=== PATIENT | female | born 1945 | race Caucasian/White ===

== ENCOUNTER → 2016-12-11 | Day surgery (SDC) | payer OTHER ==
[~2016-12-11] MED LIST: ASPI81TA2 PO; ATOR40TA59 PO; CHOL200027 PO; GLIM4TAB2 PO; INSU100I18 SQ; IV RINGERS,LACTATED 1000ML 1,000 ML IV SCH; LANS30CA17 PO; LEVO75TA5 PO; NAPR220C4 PO; OMEP20CA5 PO; PIOG1TAB34 PO; PROPOFOL 20 ML IV ONE
[2016-12-11 12:49] VITALS: BP 134/75
--- NOTE | 2016-12-12 10:26 | CONS ---
DATE OF CONSULTATION: 12/11/2016 REFERRING PHYSICIAN: ____ HISTORY OF PRESENT ILLNESS: A 70-year-old female with past medical history significant for diabetes, hyperlipidemia, chronic reflux, hypertension and recurrent dysphagia, Schatzki's ring and pancreatitis, is seen for recurrent dysphagia, ____ in the sub cervical location, dilatation previously did help, although she has dysphagia with solids and liquids. Weight and appetite is stable, there has been no bleeding. She is otherwise without additional complaints. PAST MEDICAL HISTORY: Hyperlipidemia, diabetes, hypothyroidism, gastroesophageal reflux disease, osteoarthrosis, and hypertension. ALLERGIES: None. MEDICATIONS: Aspirin, atorvastatin, vitamin D, glimepiride, insulin, Prevacid, levothyroxine, Naprosyn, metformin, and pioglitazone. FAMILY AND SOCIAL HISTORY: She does not drink or smoke. She is . REVIEW OF SYSTEMS: Per records. PHYSICAL EXAMINATION: GENERAL: Reveals a well-nourished, well-developed female. VITAL SIGNS: She is afebrile, pulse 76, and respirations 18. HEENT: Normocephalic and atraumatic head. Pupils and extraocular muscles not tested. Sclerae anicteric. NECK: Supple. LUNGS: Clear. CARDIOVASCULAR: Reveals an S1, S2 without S3, S4 or appreciable murmur. ABDOMEN: Soft abdomen, normal bowel sounds, without appreciable hepatosplenomegaly. EXTREMITIES: Reveals no cyanosis, clubbing or edema. IMPRESSION: Dysphagia, most likely secondary to presbyesophagus and/or Schatzki's ring, achalasia, malignancy, Marks's esophagus, ____ differential as well. Therefore, I recommended upper endoscopy, possible biopsy and dilatation. Risks and benefits of procedure including risk of perforation have been discussed with the patient who is willing to proceed at this time. Thank you ____ for allowing us to consult and participate in the patient's care. MARKELL SPENCER MD DR: ANTONELLA/brisa JOB#: [id number] / [id number]
== END | disposition home or self-care (01) ==
LOC: ENDOS 10:38
PROVIDERS: ATTEND Internal Medicine Gastroenterology
DX: K22.2 Esophageal obstruction (principal); K29.50 Unspecified chronic gastritis without bleeding; E78.00 Pure hypercholesterolemia, unspecified; I10 Essential (primary) hypertension; M19.90 Unspecified osteoarthritis, unspecified site; E11.9 Type 2 diabetes mellitus without complications; E03.9 Hypothyroidism, unspecified; Z90.710 Acquired absence of both cervix and uterus; Z90.49 Acquired absence of other specified parts of digestive tract
CPT/HCPCS: 43235; 43450; J2704

== ENCOUNTER 2018-02-11 08:08 | Outpatient (CLI) | payer OTHER ==
[2018-02-11 08:26] LABS: ADD MAN DIFF? NO
[2018-02-11 08:35] LABS: BASO % 1 % (0-3); EOS % 1 % (0-3); HEMATOCRIT 41.4 % (36.0-47.0); HEMOGLOBIN 13.8 g/dL (12.0-15.5); LYMPH # 1.4 x10^3/uL (1.0-4.8); LYMPH % 33 % (24-48); MEAN CORPUSCULAR HEMOGLOBIN 28 pg (25-35); MEAN CORPUSCULAR HGB CONC 34 g/dL (31-37); MEAN CORPUSCULAR VOLUME 82 fL (79-100); MONO # 0.3 x10^3/uL (0.0-1.1); MONO % 6 % (0-9); NEUT # 2.5 x10^3uL (1.8-7.7); NEUT % 59 % (31-73); PLATELET COUNT 66 x10^3/uL (140-400); RED BLOOD COUNT 5.04 x10^6/uL (3.50-5.40); RED CELL DISTRIBUTION WIDTH 15.8 % (11.5-14.5); WHITE BLOOD COUNT 4.2 x10^3/uL (4.0-11.0)
[2018-02-11 08:37] LABS: INR 1.2 (0.8-1.1)
[2018-02-11 09:38] LABS: PLT ESTIMATE DECREASED (ADEQUATE)
[2018-02-11] MEDS ORDERED: LIDOCAINE WITH 8.4% SOD BICARB 3 ML DISP.SYRIN. (10:04)
[2018-02-11] MEDS ORDERED: MIDAZOLAM HCL/PF 2 MG/2 ML VIAL. (10:12)
[2018-02-11] MEDS ORDERED: fentaNYL PF VIAL 100 MCG/2 ML VIAL (10:13)
[2018-02-11] MEDS: LIDOCAINE WITH 8.4% SOD BICARB 3 ML DISP.SYRIN. IJ (10:32)
[2018-02-11] MEDS: fentaNYL PF VIAL 100 MCG/2 ML VIAL IV (10:32)
[2018-02-11] MEDS: MIDAZOLAM HCL/PF 2 MG/2 ML VIAL. IV (10:33)
== END 2018-02-11 11:35 | disposition home or self-care (01) ==
LOC: INTRAD 08:08
DX: D70.4 Cyclic neutropenia (principal); D69.6 Thrombocytopenia, unspecified; Z98.42 Cataract extraction status, left eye; Z98.41 Cataract extraction status, right eye; Z96.1 Presence of intraocular lens; E78.00 Pure hypercholesterolemia, unspecified; I10 Essential (primary) hypertension; Z90.49 Acquired absence of other specified parts of digestive tract; Z87.19 Personal history of other diseases of the digestive system; Z90.710 Acquired absence of both cervix and uterus; Z87.442 Personal history of urinary calculi; M19.90 Unspecified osteoarthritis, unspecified site; Z96.653 Presence of artificial knee joint, bilateral; E11.9 Type 2 diabetes mellitus without complications; E03.9 Hypothyroidism, unspecified; Z87.891 Personal history of nicotine dependence; D64.9 Anemia, unspecified; Z98.890 Other specified postprocedural states; Z79.84 Long term (current) use of oral hypoglycemic drugs
CPT/HCPCS: 36415; 38222; 77012; 85025; 85610; 88184; 88185; 88237; 88305; 88311; 88313; 99152; J2250; J3010

== ENCOUNTER → 2018-04-09 | Day surgery (SDC) | payer OTHER ==
[~2018-04-09] MED LIST changes: +ASPI-630 PO; -ASPI81TA2 PO; +IRON1TAB2 PO; -LANS30CA17 PO; +LANS30CA66 PO; +LIDOCAINE 1% PF 2 ML VIAL. ID PRN; +LIDOCAINE 2% PF Vial for OR 5 ML VIAL. ONE; +METF10003 PO; +MIDAZOLAM HCL/PF 2 MG/2 ML VIAL. IV PRN; +OMEP40CA5 PO; +fentaNYL PF VIAL 100 MCG/2 ML VIAL IV PRN
[2018-04-09 10:23] VITALS: BP 136/73
--- NOTE | 2018-04-09 18:37 | CONS ---
DATE OF CONSULTATION: 04/09/2018 REASON FOR CONSULTATION: Dysphagia. REFERRING Niesha Llamas. HISTORY OF PRESENT ILLNESS: A 72-year-old female with past medical history significant for hyperlipidemia, diabetes, hypothyroidism as well as sleep apnea is seen with recurrent dysphagia for solids and liquids. She has dilatation approximately 2 years previously, which has worked and 2 years prior to that. She is here today for interval dilatation. She is on omeprazole 40 mg daily for reflux. Denies any change in weight or appetite. No bleeding. Has no additional complaints. PAST MEDICAL HISTORY: Diabetes, hypothyroidism, gastroesophageal reflux disease, diverticulosis, hypertension. ALLERGIES: None. MEDICATIONS: Include aspirin, atorvastatin, vitamin D, glimepiride, insulin, levothyroxine, Naprosyn, omeprazole, and metformin. FAMILY AND SOCIAL HISTORY: She is retired, nonsmoker, nondrinker, . PAST SURGICAL HISTORY: Significant for joint replacement surgery, cholecystectomy, breast surgery, bilateral knee replacement, eye surgery. REVIEW OF SYSTEMS: Per records. PHYSICAL EXAMINATION: GENERAL: Reveals thin female who is alert, cooperative in no acute distress. VITAL SIGNS: Temperature is 98, pulse of 80, respirations 20. HEENT: Normocephalic, atraumatic head. Pupils and extraocular muscles not tested. Sclerae anicteric. NECK: Supple. LUNGS: Clear. CARDIOVASCULAR: Reveals an S1, S2 without S3, S4 or appreciable murmur. ABDOMEN: Soft abdomen, normal bowel sounds without appreciable hepatosplenomegaly. EXTREMITIES: Reveals no cyanosis, clubbing or edema. IMPRESSION: Dysphagia, most likely secondary to presbyesophagus and/or Schatzki's ring, malignancy, achalasia, eosinophilic esophagitis are possible as well. Therefore, I recommend possible biopsy and/or dilatation. Risks and benefits have been discussed with the patient previously, is willing to proceed. MARKELL SPENCER MD DR: ANTONELLA/brisa JOB#: [id number] / [id number] ecc Records, Medical
== END | disposition home or self-care (01) ==
LOC: ENDOS 08:32
PROVIDERS: ATTEND Internal Medicine Gastroenterology
DX: K22.2 Esophageal obstruction (principal); K29.50 Unspecified chronic gastritis without bleeding; E78.00 Pure hypercholesterolemia, unspecified; I10 Essential (primary) hypertension; E11.9 Type 2 diabetes mellitus without complications; E03.9 Hypothyroidism, unspecified; Z79.899 Other long term (current) drug therapy; K21.9 Gastro-esophageal reflux disease without esophagitis; Z79.82 Long term (current) use of aspirin; Z79.4 Long term (current) use of insulin; Z79.84 Long term (current) use of oral hypoglycemic drugs; Z90.49 Acquired absence of other specified parts of digestive tract; Z96.653 Presence of artificial knee joint, bilateral; Z98.42 Cataract extraction status, left eye; Z98.41 Cataract extraction status, right eye; Z96.1 Presence of intraocular lens; Z87.19 Personal history of other diseases of the digestive system; Z90.710 Acquired absence of both cervix and uterus; Z98.890 Other specified postprocedural states; M19.90 Unspecified osteoarthritis, unspecified site; D64.9 Anemia, unspecified; K74.60 Unspecified cirrhosis of liver; Z87.891 Personal history of nicotine dependence
CPT/HCPCS: 43235; 43450; J2001; J2704

== ENCOUNTER → 2018-08-02 | Outpatient (CLI) | payer OTHER ==
[2018-04-09 10:23] VITALS: BP 136/73
[~2018-08-02] MED LIST changes: -IV RINGERS,LACTATED 1000ML 1,000 ML IV SCH; +LIDOCAINE 1% Multi-Dose 50 ML VIAL. INJ ONE; -LIDOCAINE 1% PF 2 ML VIAL. ID PRN; -LIDOCAINE 2% PF Vial for OR 5 ML VIAL. ONE; +LIDOCAINE 2%/EPI 1:100,000 20 ML VIAL. IJ ONE; -METF10003 PO; +METF10007 PO; -MIDAZOLAM HCL/PF 2 MG/2 ML VIAL. IV PRN; -PIOG1TAB34 PO; +PIOG1TAB6 PO; -PROPOFOL 20 ML IV ONE; -fentaNYL PF VIAL 100 MCG/2 ML VIAL IV PRN
--- NOTE | 2018-08-04 12:09 | PATHOLOGY ---
[facility] Accession Number: [id number] . 01 Material submitted: . RIGHT BREAST MASS . 01 Clinical history: . Right breast mass 5 mm . 02 Diagnosis: Breast tissue, right breast mass needle biopsies: - INVASIVE DUCTAL CARCINOMA, GRADE 2. SEE COMMENT. . (JPM:isaac; 08/03/2018) QMS/08/04/2018 . 02 Comment: Sections of the right breast mass needle biopsy reveal an invasive mammary carcinoma. The tumor shows little tubule formation, and is largely present in small solid nests and cords. The tumor cells show mild to focal moderate nuclear pleomorphism. The tumor shows modest mitotic activity. There is a rare tumor-associated microcalcification. There is no lymphovascular tumor invasion. The invasive carcinoma measures up to 6 mm in greatest dimension on the glass slide. The case is also examined by Dr. Gross, who concurs with the diagnosis. Breast prognostic studies will be obtained, the results of which will be reported separately. (JPM:isaac; 08/03/2018) . 02 Electronically signed: . Bradley Billy MD, Pathologist NPI- [id number] . 01 Gross description: . Received in formalin labeled "Twila Syed, right breast," are multiple needle cores of yellow-meade fibrofatty tissue measuring 2.2 x 1.2 x 0.3 cm in aggregate dimensions. The tissue submitted in its entirety in cassette A1 through A3. The cold ischemic time is 3 minutes. The total formalin fixation time is 13 hours and 7 minutes. (TSD; 08/02/2018) TOB/TOB . 02 Pathologist provided ICD-10: C50.911 . 02 CPT . 813789 Specimen Comment: A courtesy copy of this report has been sent to Specimen Comment: [phone], , . Specimen Comment: Report sent to , DR RAND / DR PLATT Specimen Comment: A duplicate report has been generated due to demographic updates. Performed at: 01 [facility] [address], [place] [id number] MD Adal Kelley MD Phone: [phone] Performed at: 02 [facility] [address] [place], [place] [id number] MD Bradley Billy MD Phone: [phone]
--- NOTE | 2018-08-06 09:42 | RAD ---
Ultrasound-guided vacuum-assisted right breast biopsy, 08/02/2018: History: Suspicious breast nodule Previous studies demonstrated a a faint, suspicious hypoechoic area at the 12:30 location in the right breast approximately 5 cm from the nipple. Under local anesthesia, aseptic conditions and sonographic guidance the [employer] biopsy instrument was passed into this region via a medial approach. Multiple 12-gauge vacuum-assisted core samples were obtained. A biopsy marker was then deposited at the biopsy site. The biopsy instrument was removed and hemostasis obtained. Two-view postprocedural digital mammograms were then obtained to document position of the biopsy marker. The marker lies directly adjacent to the suspicious mammographic abnormality. The patient tolerated the procedure well and left the department in good condition. The subsequent pathology report indicated the presence of invasive ductal carcinoma. This is considered to be concordant finding. Note: The findings were called to personnel in Dr. Candelaria's office at 9:37 AM on 08/06/2018.
== END | disposition home or self-care (01) ==
LOC: US 07:37
PROVIDERS: ATTEND Surgery
DX: C50.211 Malignant neoplasm of upper-inner quadrant of right female breast (principal); E11.9 Type 2 diabetes mellitus without complications; E03.9 Hypothyroidism, unspecified; E78.5 Hyperlipidemia, unspecified; J44.9 Chronic obstructive pulmonary disease, unspecified; K21.9 Gastro-esophageal reflux disease without esophagitis; Z79.82 Long term (current) use of aspirin; Z79.899 Other long term (current) drug therapy; Z90.710 Acquired absence of both cervix and uterus; Z90.49 Acquired absence of other specified parts of digestive tract; Z96.653 Presence of artificial knee joint, bilateral; Z98.42 Cataract extraction status, left eye; Z98.41 Cataract extraction status, right eye; Z96.1 Presence of intraocular lens; Z98.890 Other specified postprocedural states; Z88.8 Allergy status to other drugs, medicaments and biological substances; Z79.84 Long term (current) use of oral hypoglycemic drugs
CPT/HCPCS: 19083; 77065; 88305; 88361; C1713; 19081; 76942

== ENCOUNTER → 2018-09-07 | Outpatient (CLI) | payer OTHER ==
[2018-08-19 11:00] VITALS: BP 110/55
[~2018-09-07] MED LIST changes: +CYCL5TAB PO; +INSU200I4 SQ; -LIDOCAINE 1% Multi-Dose 50 ML VIAL. INJ ONE; -LIDOCAINE 2%/EPI 1:100,000 20 ML VIAL. IJ ONE
--- NOTE | 2018-09-07 12:47 | KCIC ---
EXAM: Dual energy x-ray absorptiometry (DEXA). HISTORY: Postmenopausal female presents for osteoporosis screening. COMPARISON: None. TECHNIQUE: Dual energy x-ray absorptiometry of the left hip was performed. Calculation of bone mineral density based on standard deviations above or below the expected young adult normal value (T-score) was completed. FINDINGS: The average bone mineral density in the left hip is 0.821 g/cmxcm, corresponding with a T-score of -1.0. IMPRESSION: Borderline osteopenia measured at the left hip. Note: Definitions established by the World Health Organization: 1. Normal: T-score is -1.0 or above. 2. Osteopenia: T-score is between -1.0 and -2.5 . 3. Osteoporosis: T-score is -2.5 or below. Electronically signed by: Brenda Martinez MD (09/07/2018 12:43 PM) [facility]
== END | disposition home or self-care (01) ==
LOC: KCIC DEXA 12:04
PROVIDERS: ATTEND Internal Medicine Hematology & Oncology
DX: M85.852 Other specified disorders of bone density and structure, left thigh (principal); Z78.0 Asymptomatic menopausal state
CPT/HCPCS: 77080

== ENCOUNTER → 2018-12-20 | Outpatient (CLI) | payer OTHER ==
[2018-08-19 11:00] VITALS: BP 110/55
--- NOTE | 2018-12-20 14:24 | RAD ---
Nuclear medicine whole body bone scan History: rt breast ca. rt mastectomy 2017. Comparison: No relevant comparison exams. Technique: Examination performed after intravenous administration of 25 mCi Technetium 99m MDP. Images of the whole body were obtained in the anterior and posterior projections. Right and left lateral static images of the calvarium acquired. Findings: Increased tracer uptake in the lumbar spine likely localizing to the L3 vertebral body, midline and right of midline, in the left L4 vertebral body. Tracer uptake in the spine is otherwise relatively homogeneous. Tracer uptake in the sacroiliac joints appear symmetric. Tracer uptake of the shoulders is symmetric and likely degenerative. There are bilateral knee arthroplasties. Periprosthesis tracer uptake is relatively symmetric and therefore probably normal. Tracer uptake in ribs is symmetric. Tracer distribution in the soft tissues appears normal. IMPRESSION: Increased tracer uptake of the L3 and L4 vertebral bodies. Cannot exclude metastatic disease. Recommend correlation with cross-sectional imaging. Electronically signed by: Andera Caruso MD (12/20/2018 2:22 PM) [id number]
== END | disposition home or self-care (01) ==
LOC: NM 08:31
PROVIDERS: ATTEND Internal Medicine Hematology & Oncology
DX: M89.8X9 Other specified disorders of bone, unspecified site (principal); Z17.0 Estrogen receptor positive status [ER+]; Z85.3 Personal history of malignant neoplasm of breast; Z96.653 Presence of artificial knee joint, bilateral
CPT/HCPCS: 78306; A9503

== ENCOUNTER → 2019-01-27 | Outpatient (CLI) | payer OTHER ==
[2018-08-19 11:00] VITALS: BP 110/55
--- NOTE | 2019-01-27 11:22 | RAD ---
FDG tumor localization scan, PET/CT, 01/27/2019: History: Restaging breast cancer Following IV injection of 15.5 mCi of 18 F-FDG, imaging was performed from the skull base to the proximal thighs. The noncontrast CT component was performed for attenuation correction and anatomic localization purposes rather than for primary diagnosis. The patient's blood glucose level at the time of injection was 145 MG/DL. There is increased FDG uptake at the right breast surrounding a small elliptical fluid collection, presumably a seroma/old hematoma. No hypermetabolic axillary, internal mammary or mediastinal adenopathy is evident. The pulmonary FDG uptake is unremarkable. Physiologic activity is evident in the neck. There is mild asymmetrically increased activity in the left thyroid lobe. No discrete mass is seen. The neck activity is otherwise unremarkable. Normal GI tract and urinary tract activity is evident in the abdomen and pelvis. No hypermetabolic abdominal or pelvic lesion is seen. Incidental CT findings include the presence of mild coronary calcifications. The gallbladder is surgically absent. A few sigmoid diverticula are present. There are scattered degenerative changes in the spine. IMPRESSION: 1. Postsurgical change at the right mastectomy site with a small presumed seroma. Infection cannot be excluded. 2. Mildly asymmetric thyroid FDG uptake. Correlation with sonographic findings is suggested. 3. No FDG/PET evidence of metastatic disease.
== END | disposition home or self-care (01) ==
LOC: PETSC 08:43
PROVIDERS: ATTEND Internal Medicine Hematology & Oncology
DX: C50.911 Malignant neoplasm of unspecified site of right female breast (principal); M89.8X9 Other specified disorders of bone, unspecified site; I25.10 Atherosclerotic heart disease of native coronary artery without angina pectoris; Z17.0 Estrogen receptor positive status [ER+]; Z95.3 Presence of xenogenic heart valve; Z90.49 Acquired absence of other specified parts of digestive tract
CPT/HCPCS: 78815; A9552

== ENCOUNTER → 2019-02-10 | Outpatient (CLI) | payer OTHER ==
[2018-08-19 11:00] VITALS: BP 110/55
--- NOTE | 2019-02-10 16:20 | RAD ---
Thyroid ultrasound, 02/10/2019: HISTORY: Asymmetric FDG uptake on pet scan This patient's thyroid gland is small and difficult to delineate. The right lobe measures 2.9 x 0.9 x 1.0 cm while the left lobe measures 2.0 x 0.9 x 0.7 cm. Both lobes are somewhat heterogeneous. There is a 5 mm small rounded hypoechoic nodule in the lower pole right lobe of the gland. There is a possible 9 mm relatively isoechoic nodule in the upper pole of the right lobe of the gland. No left thyroid nodule is seen. No thyroid calcifications are evident. IMPRESSION: 1. Small heterogeneous thyroid gland. 2. There appear to be 2 small subcentimeter nodules in the right thyroid lobe without suspicious features. 3. The asymmetric thyroid FDG uptake on the recent PET/CT exam is considered to be of no clinical significance, considering the lack of a definable left thyroid nodule. Electronically signed by: Emerson Ross MD (02/10/2019 4:17 PM) [facility]
== END | disposition home or self-care (01) ==
LOC: US 14:23
PROVIDERS: ATTEND Internal Medicine Hematology & Oncology
DX: E04.2 Nontoxic multinodular goiter (principal)
CPT/HCPCS: 76536

== ENCOUNTER → 2019-04-21 | Day surgery (SDC) | payer OTHER ==
[~2019-04-21] MED LIST changes: +EXEM25TA2 PO; +HYDROmorphone 2 MG/ML VIAL IV PRN; +IV RINGERS,LACTATED 1000ML 1,000 ML IV SCH; +LIDOCAINE 1% PF 2 ML VIAL. ID PRN; +LIDOCAINE 2% PF 5 ML VIAL. ONE; +MORPHINE SULFATE 2 MG/ML VIAL. IV PRN; +ONDANSETRON PF 4 MG/2 ML VIAL. IV PRN; -PIOG1TAB6 PO; +PIOG1TAB8 PO; +PROCHLORPERAZINE 10 MG/2 ML VIAL. IV PRN; +PROPOFOL 20 ML IV ONE; +fentaNYL PF VIAL 100 MCG/2 ML VIAL IV PRN
[2019-04-21 13:00] VITALS: BP 160/80
--- NOTE | 2019-04-21 20:32 | CONS ---
DATE OF CONSULTATION: 04/21/2019 REFERRING PHYSICIAN: PAM Ivy REASON FOR CONSULTATION: Dysphagia. HISTORY OF PRESENT ILLNESS: A 73-year-old female whose past medical history is significant for diabetes, hypothyroidism, gastroesophageal reflux disease, diverticulosis, hypertension, seen for recurrent dysphagia. Previous dilatation done 1 year previously has worked until now. She is now here today for repeat dilatation. PAST MEDICAL HISTORY: Diabetes, hypothyroidism, GERD, diverticulosis, hypertension. ALLERGIES: None. MEDICATIONS: Vitamin D, cyclobenzaprine, glimepiride, insulin, iron, levothyroxine, metformin, omeprazole. FAMILY AND SOCIAL HISTORY: Retired, nonsmoker, nondrinker. She is . PAST SURGICAL HISTORY: Significant for joint replacement, cholecystectomy, breast surgery, bilateral knee replacement, eye surgery. REVIEW OF SYSTEMS: Per records. PHYSICAL EXAMINATION: GENERAL: Reveals a well-nourished, well-developed female, who is alert, cooperative, in no acute distress. VITAL SIGNS: Temp is 97.9, pulse 71, respirations 20. HEENT: Normocephalic, atraumatic head. Pupils and extraocular muscles are not tested. Sclerae anicteric. NECK: Supple. LUNGS: Clear. CARDIOVASCULAR: Reveals an S1, S2 without S3, S4 or appreciable murmur. ABDOMEN: Soft abdomen, normal bowel sounds, without appreciable hepatosplenomegaly. EXTREMITIES: Reveals no cyanosis, clubbing or edema. IMPRESSION: Dysphagia, most likely secondary to recurrent Schatzki ring and eosinophilic esophagitis, Marks's, malignancy, achalasia possible as well. Therefore, we are going to get upper endoscopy, possible biopsy and dilatation. Risks and benefits have been discussed with the patient, who understands of perforation and is willing to proceed. MARKELL SPENCER MD DR: ANTONELLA/brisa JOB#: [id number] / [id number]
== END ==
LOC: SURG 10:41
PROVIDERS: ATTEND Internal Medicine Gastroenterology
DX: K22.2 Esophageal obstruction (principal); E11.9 Type 2 diabetes mellitus without complications; E03.9 Hypothyroidism, unspecified; K21.9 Gastro-esophageal reflux disease without esophagitis; I10 Essential (primary) hypertension; Z96.653 Presence of artificial knee joint, bilateral; Z79.84 Long term (current) use of oral hypoglycemic drugs; Z98.890 Other specified postprocedural states
CPT/HCPCS: 43235; 43450; J2001; J2704

== ENCOUNTER → 2020-03-08 | Outpatient (CLI) | payer MEDICARE, OTHER ==
[2019-08-06 19:00] VITALS: BP 120/67
[~2020-03-08] MED LIST changes: +ANAS1TAB47 PO; +DOCU-109 PO; -GLIM4TAB2 PO; +GLIM4TAB8 PO; +HYDR-2761 PO; -HYDROmorphone 2 MG/ML VIAL IV PRN; +INSU100I13 SQ; -IV RINGERS,LACTATED 1000ML 1,000 ML IV SCH; -LIDOCAINE 1% PF 2 ML VIAL. ID PRN; -LIDOCAINE 2% PF 5 ML VIAL. ONE; +LIPITOR80 MG PO; -MORPHINE SULFATE 2 MG/ML VIAL. IV PRN; +OMEP40CA45 PO; -OMEP40CA5 PO; -ONDANSETRON PF 4 MG/2 ML VIAL. IV PRN; +POLY17PO29 PO; -PROCHLORPERAZINE 10 MG/2 ML VIAL. IV PRN; -PROPOFOL 20 ML IV ONE; -fentaNYL PF VIAL 100 MCG/2 ML VIAL IV PRN
== END | disposition home or self-care (01) ==
LOC: LAB 13:41
PROVIDERS: ATTEND Internal Medicine Gastroenterology
DX: Z11.59 Encounter for screening for other viral diseases (principal)
CPT/HCPCS: U0003-CS

== ENCOUNTER → 2020-03-14 | Day surgery (SDC) | payer MEDICARE, OTHER ==
[~2020-03-14] MED LIST changes: -DOCU-109 PO; -HYDR-2761 PO; -INSU100I13 SQ; +IV RINGERS,LACTATED 1000ML 1,000 ML IV ONE; +LIDOCAINE 2% PF 5 ML VIAL. ONE; -POLY17PO29 PO; +PROPOFOL 10 MG/ML (20ML) VIAL. IV ONE
[2020-03-14 08:20] VITALS: BP 141/87
== END | disposition home or self-care (01) ==
LOC: ENDOS 06:48
PROVIDERS: ATTEND Internal Medicine Gastroenterology
DX: R13.10 Dysphagia, unspecified (principal); I10 Essential (primary) hypertension; E11.9 Type 2 diabetes mellitus without complications; E78.00 Pure hypercholesterolemia, unspecified; G47.30 Sleep apnea, unspecified; K21.9 Gastro-esophageal reflux disease without esophagitis; Z98.890 Other specified postprocedural states; Z79.899 Other long term (current) drug therapy
CPT/HCPCS: 43450; J2704

== ENCOUNTER 2020-03-15 15:19 | Inpatient (IN) | payer MEDICARE, OTHER ==
[~2020-03-15] VITALS: Ht 157.5 cm; Wt 71.5 kg
[~2020-03-15 15:19] MED LIST changes: -ANAS1TAB47 PO; -IV RINGERS,LACTATED 1000ML 1,000 ML IV ONE; -LIDOCAINE 2% PF 5 ML VIAL. ONE; -LIPITOR80 MG PO; -PROPOFOL 10 MG/ML (20ML) VIAL. IV ONE
[2020-03-15 15:24] VITALS: BP 115/66
[2020-03-15] MEDS ORDERED: ANAS1TAB47 PO (16:03)
[2020-03-15] MEDS ORDERED: LIPITOR80 MG PO (16:03)
[2020-03-15] MEDS ORDERED: ONDANSETRON PF 4 MG/2 ML VIAL. IVP PRN (16:30)
[2020-03-15] MEDS ORDERED: DEXTROSE 50% 25 GM / 50ML DISP.SYRIN. IV PRN (16:30)
[2020-03-15 19:00] VITALS: BP 102/54
[2020-03-15] MEDS: MORPHINE SULFATE 4 MG/ML VIAL. IV PRN (21:01)
[2020-03-15 23:00] VITALS: BP 116/59
[2020-03-16] MEDS: MORPHINE SULFATE 4 MG/ML VIAL. IV PRN ×2 (02:32→08:22)
[2020-03-16 03:00] VITALS: BP 108/51
[2020-03-16 07:00] VITALS: BP 138/70
--- NOTE | 2020-03-16 09:11 | NUR ---
SW following. Discussed with RN, pt from home, ada diet, 2L oxygen - SW to determine if pt uses o2 at home. IR consult. SW will continue to follow.
[2020-03-16 11:00] VITALS: BP 104/62
[2020-03-16] MEDS ORDERED: GADOTERATE 7.5 MMOL/15ML VIAL. IVP ONE (13:30)
--- NOTE | 2020-03-16 14:13 | PN ---
DATE: SUBJECTIVE: The patient is resting, slightly propped up in bed, in no apparent distress. On questioning her, she continued to complain of back pain, also now states that she is unable to urinate. PHYSICAL EXAMINATION: GENERAL: When I examined her, she looked pale, no jaundice, cyanosis or thyromegaly. No jugular venous distention. No limb edema. VITAL SIGNS: Her heart rate was 93, blood pressure 104/62, temperature 98.6, respiratory rate was 18 and oxygen saturation was 95% on room air. HEAD, EYES, EARS, NOSE AND THROAT: Normocephalic, atraumatic. NECK: Supple. HEART: Showed normal first and second heart sounds. No gallop or murmur. CHEST: Clear to auscultation. No crepitation or rhonchi. ABDOMEN: Distended, soft with tenderness, mostly in the suprapubic area. There is no guarding or rigidity. No organomegaly. All hernial orifice intact. Bowel sounds normal. NEUROLOGIC: She is awake, alert, responding appropriately. All cranial nerves intact. She moves extremities without difficulty. LABORATORY DATA: She has no lab work today. However, her blood sugar remained stable, within acceptable range. We have continued her medication including Arimidex 1 mg once a day, atorvastatin calcium 80 mg once a day, omeprazole 40 mg once a day. She is also on metformin 1000 mg twice a day, glimepiride 4 mg twice a day and levothyroxine sodium 88 mcg once a day. She has had an MRI arranged and we have already consulted the interventional radiologist to see whether she is a candidate for vertebroplasty. She does have multiple other medical problems that include hypertension, hyperlipidemia and type 2 diabetes mellitus. We will also arrange for her to scan her bladder as she is probably retaining urine. BAILEY MCCORMICK MD DR: KEYANA/brisa JOB#: [id number] / [id number]
--- NOTE | 2020-03-16 14:29 | HP ---
ADMIT DATE: HISTORY OF PRESENT ILLNESS: The patient is a 74-year-old female patient, who apparently presented to the Emergency Room of [facility] with mechanical ground level fall, landing on her bottom approximately an hour and half prior to arrival. The patient has a history of vertebral fracture with kyphoplasty in the past. She has pain in her lower thoracic and lumbar area. She denied any neurological deficit. No bladder or bowel incontinence. Denied any other complaint. She was investigated. In particular, there was no loss of consciousness. She did not hit her head. Denied any headache. She was evaluated in the Emergency Room and has had a CT scan of thoracic and lumbar spine, which showed that the patient has approximately 50% height loss of L1 vertebral body given the cortical offset anteriorly, suspicious for acute compression fracture with mild retropulsion of the posterior element that results in mild central canal stenosis. She has chronic fracture of T11 and L3 vertebral bodies posterior to augmentation change, has diffusely decreased bone mineral density and multilevel degenerative changes and therefore, the patient was transferred to [facility] to arrange for an MRI and to consult the interventional radiologist to see whether she qualifies for kyphoplasty. PAST MEDICAL HISTORY: Significant for diabetes, hypertension, gastroesophageal reflux disease, diverticulosis, hypertension as well as recurrent dysphagia, for which she underwent previous dilatation. PAST SURGICAL HISTORY: Significant for joint replacement, cholecystectomy, breast surgery, bilateral knee replacement, eye surgery, EGDs and colonoscopy as well as esophageal stricture dilatation. ALLERGIES: She has no known drug allergies. FAMILY HISTORY: Noncontributory. SOCIAL HISTORY: She is , retired, nonsmoker, nondrinker. MEDICATIONS: She is currently on following medications: She is on exemestane 25 mg once a day, orphenadrine citrate 100 mg twice a day, ferrous sulfate 325 mg once a day, aspirin 81 mg once a day, naproxen 375 mg once a day, omeprazole 40 mg once a day, metformin 500 mg twice a day. She is on Tresiba 55 units subcutaneously once a day at bedtime, glimepiride 5 mg twice a day, levothyroxine sodium 25 mcg once a day, ergocalciferol vitamin D3 of 2000 units once a day. REVIEW OF SYSTEMS: As per history of present illness. PHYSICAL EXAMINATION: GENERAL: On arrival to the Emergency Room, the patient looked pale, but no jaundice, cyanosis or thyromegaly. No jugular venous distention or limb edema. VITAL SIGNS: Her heart rate was 89, blood pressure was 148/79, temperature was 98, respiratory rate was 26 and oxygen saturation was 96% on room air. HEAD, EYES, EARS, NOSE AND THROAT: Showed normocephalic, atraumatic. NECK: Supple. HEART: Showed normal first and second heart sounds. No gallop, rub or murmur. CHEST: Clear to auscultation. No crepitation or rhonchi. ABDOMEN: Distended, soft, nontender. NEUROLOGIC: She was awake, alert, responding appropriately. All cranial nerves intact. EXTREMITIES: She moves extremities without difficulty. PSYCHIATRIC: Her affect, judgment and mood were normal. LABORATORY DATA: She has had lab work done, which showed that her white cell count was 7000, hemoglobin 14, hematocrit 44, MCV 87 and platelet count of 77,000. Her prothrombin time, INR and aPTT were normal. Her chemistry showed a serum sodium 138, potassium 4.3, chloride 101, bicarbonate 23, anion gap of 14, BUN 9, creatinine 1, estimated GFR was 54 mL per minute. Her glucose was 113, calcium was 9.8. Total bilirubin, AST, ALT, alkaline phosphatase were normal. Total protein was 7.3, albumin was 3.6. Her COVID-19 by PCR was negative. She did have a CT scan of the thoracic spine as well as a CT scan of the lumbar spine, which showed that there is approximately 50% height loss of the L1 vertebral body given the cortical offset anteriorly, suspicious for acute compression fracture with mild retropulsion of the posterior element that results in mild central canal stenosis. She has chronic fracture of T11 and L3 vertebral bodies, posterior to augmentation changes. She has also diffusely decreased bone mineral density and multilevel degenerative changes. The patient was transferred to [facility]. We did order an MRI and consulted Dr. Garcia to see whether she qualifies for kyphoplasty. BAILEY MCCORMICK MD DR: KEYANA/brisa JOB#: [id number] / [id number]
[2020-03-16 15:00] VITALS: BP 120/68
--- NOTE | 2020-03-16 15:45 | RAD ---
LUMBAR SPINE WO/W CONTRAST History: Reason: Comp fx 14mL DOTAREM / Spl. Instructions: / History: Technique: Multiplanar, multi sequential MR imaging was performed of the lumbar spine without and with intravenous contrast. Comparison: July 30, 2019 Findings: Transitional lumbosacral anatomy with lumbarization of S1. Vertebral body numbering in keeping with prior reporting. L5-S1 is identified on axial T2 series 7 image 19. Acute L1 superior endplate compression fracture with mild less than 25 percent height loss. No retropulsion. Severe chronic L3 compression fracture with interval vertebroplasty. Increased height loss centrally compared to 2019. Increased retropulsion contributing to moderate to severe canal narrowing. Chronic T11 compression fracture with vertebroplasty material. Conus terminates at the normal location. No evidence of nerve root clumping. No pathologic enhancement. L1-L2: No canal or neuroforaminal narrowing. L2-L3: Disc bulge. Retropulsion from severe compression fracture. Moderate to severe canal narrowing. Moderate right and mild left neuroforaminal narrowing. Mild facet arthropathy. L3-L4: Disc bulge. Moderate facet arthropathy. Mild canal narrowing due to retropulsion from compression fracture. Moderate right and mild left neuroforaminal narrowing. L4-L5: Broad-based disc bulge. Advanced right and moderate left facet arthropathy. Right greater left subarticular recess narrowing. Mild canal narrowing. No neuroforaminal narrowing. L5-S1: Disc bulge. Advanced facet arthropathy. No canal narrowing. No neuroforaminal narrowing. Impression: 1. Acute L1 mild compression fracture. 2. Chronic L3 compression fracture with increased central height loss and retropulsion compared to 2019 MRI contributing to moderate to severe canal narrowing. 3. Multilevel lumbar spondylosis. Electronically signed by: Herbie Vences DO (03/16/2020 3:42 PM) [id number]
--- NOTE | 2020-03-16 16:19 | NUR ---
Bladder scanned, 425cc noted.
[2020-03-16] MEDS: LEVOTHYROXINE 88 MCG TABLET PO SCH (16:39)
[2020-03-16] MEDS: PANTOPRAZOLE 40 MG TABLET.DR. PO SCH (16:39)
[2020-03-16] MEDS: ANASTROZOLE 1 MG TABLET PO SCH (16:40)
[2020-03-16] MEDS: metFORMIN 500 MG TABLET PO SCH (17:26)
[2020-03-16 18:05] LABS: PROTHROMBIN TIME PATIENT 14.7 SEC (11.7-14.0)
[2020-03-16 19:00] VITALS: BP 91/18
[2020-03-16] MEDS: ATORVASTATIN CALCIUM 40 MG TABLET. PO SCH (20:13)
[2020-03-16] MEDS: GLIMEPIRIDE 2 MG TABLET. PO SCH (20:13)
[2020-03-16 23:00] VITALS: BP 118/65
[2020-03-17 03:00] VITALS: BP 135/68
[2020-03-17] MEDS: MORPHINE SULFATE 4 MG/ML VIAL. IV PRN ×2 (03:21→22:16)
[2020-03-17] MEDS: PANTOPRAZOLE 40 MG TABLET.DR. PO SCH (06:11)
[2020-03-17] MEDS: LEVOTHYROXINE 88 MCG TABLET PO SCH (06:11)
[2020-03-17 07:00] VITALS: BP 127/59
[2020-03-17 08:19] LABS: HEMOGLOBIN 13.3 g/dL (12.0-15.5); RED BLOOD COUNT 4.66 x10^6/uL (3.50-5.40); RED CELL DISTRIBUTION WIDTH 15.2 % (11.5-14.5); WHITE BLOOD COUNT 5.1 x10^3/uL (4.0-11.0)
[2020-03-17 09:06] LABS: ALBUMIN 3.1 g/dL (3.4-5.0); ALBUMIN/GLOBULIN RATIO 0.8 (1.0-1.7); CALCIUM 9.1 mg/dL (8.5-10.1); CREATININE 0.9 mg/dL (0.6-1.0); GFR 60.9; POTASSIUM 4.6 mmol/L (3.5-5.1); TOTAL BILIRUBIN 1.5 mg/dL (0.2-1.0); TOTAL PROTEIN 7.1 g/dL (6.4-8.2)
[2020-03-17] MEDS: ANASTROZOLE 1 MG TABLET PO SCH (10:00)
[2020-03-17] MEDS: GLIMEPIRIDE 2 MG TABLET. PO SCH ×2 (10:01→22:14)
[2020-03-17] MEDS: metFORMIN 500 MG TABLET PO SCH ×2 (10:01→17:16)
[2020-03-17] MEDS: POLYETHYLENE GLYCOL 3350 17 GM PACKET. PO SCH (10:30)
--- NOTE | 2020-03-17 10:57 | PN ---
DATE: 03/17/2020 SUBJECTIVE: The patient is resting, slightly propped up in bed, in no apparent distress. She is awake, alert. On questioning her, she did complain of constipation. She did complain yesterday of difficulty urinating and has had an indwelling Blela catheter. She has had an MRI of her lumbar spine, which showed that she has acute L1 mild compression fracture. She has chronic L3 compression fracture with increased central height loss and retropulsion compared to 2019 MRI contributing to [id number] canal narrowing, multilevel lumbar spondylosis. Yesterday, she was having difficulty urinating. PHYSICAL EXAMINATION: GENERAL: When I examined her, she was resting, slightly propped up in bed, in no apparent respiratory distress. She was pale. No jaundice, cyanosis, or thyromegaly. No jugular venous distention. No limb edema. VITAL SIGNS: Her heart rate was 101, blood pressure was 127/60, temperature was 97.8, respiratory rate was 16, and oxygen saturation was 94%. HEAD, EYES, EARS, NOSE, AND THROAT: Normocephalic, atraumatic. NECK: Supple. HEART: Showed normal first and second heart sounds. No gallop, rub, or murmur. CHEST: Clear to auscultation. No crepitation or rhonchi. ABDOMEN: Markedly distended, soft, nontender. NEUROLOGIC: She is awake, alert, responding appropriately. All cranial nerves intact. She moves extremities without difficulty. Her intake and output were incompletely recorded. LABORATORY DATA: As of this morning, her white cell count was 5100, hemoglobin 13, hematocrit 40, MCV 86 and platelet count of 66,000. Her chemistry showed a serum sodium of 137, potassium 4.6, chloride 100, bicarbonate 29, anion gap of 8, BUN 10, creatinine was 0.9, estimated GFR was 60 mL per minute. Her glucose was 128, calcium was 9.1. Total bilirubin 1.5. AST, ALT, alkaline phosphatase were normal. Total protein 7.1, albumin was 3.1. Her prothrombin time and INR were 14.7 and 1.2 respectively and aPTT was 30. ASSESSMENT: L1 compression fracture confirmed by an MRI, for which we have consulted Dr. Garcia; apparently, he has not seen her yet. Other medical problems including: A. Type 2 diabetes mellitus. B. Hypertension. C. Gastroesophageal reflux disease. D. Dysphagia, stricture for which she underwent previous dilatation. PLAN: To continue with her current medication. Await evaluation by the interventional radiologist. BAILEY MCCORMICK MD DR: KEYANA/brisa JOB#: [id number] / [id number]
[2020-03-17 11:00] VITALS: BP 120/60
[2020-03-17] MEDS: DOCUSATE SODIUM 100 MG CAPSULE. PO SCH ×2 (12:43→22:14)
[2020-03-17 15:00] VITALS: BP 131/62
[2020-03-17 19:00] VITALS: BP 139/69
[2020-03-17] MEDS: ATORVASTATIN CALCIUM 40 MG TABLET. PO SCH (22:15)
[2020-03-17 23:00] VITALS: BP 142/81
[2020-03-18 03:00] VITALS: BP 118/72
[2020-03-18] MEDS: PANTOPRAZOLE 40 MG TABLET.DR. PO SCH (04:45)
[2020-03-18] MEDS: LEVOTHYROXINE 88 MCG TABLET PO SCH (04:45)
[2020-03-18] MEDS: MORPHINE SULFATE 4 MG/ML VIAL. IV PRN ×2 (04:46→08:50)
[2020-03-18 07:00] VITALS: BP 131/65
[2020-03-18] MEDS: GLIMEPIRIDE 2 MG TABLET. PO SCH ×2 (08:47→20:54)
[2020-03-18] MEDS: metFORMIN 500 MG TABLET PO SCH ×2 (08:48→17:35)
[2020-03-18] MEDS: DOCUSATE SODIUM 100 MG CAPSULE. PO SCH ×2 (08:48→20:54)
[2020-03-18] MEDS: ANASTROZOLE 1 MG TABLET PO SCH (08:53)
[2020-03-18] MEDS: POLYETHYLENE GLYCOL 3350 17 GM PACKET. PO SCH ×2 (08:53→15:04)
--- NOTE | 2020-03-18 10:36 | PN ---
DATE: 03/18/2020 SUBJECTIVE: The patient is resting, slightly propped up in bed, in no apparent distress, awake, alert, continued to complain of back pain as well as constipation. PHYSICAL EXAMINATION: GENERAL: When I examined her; however, she looked well and was clearly in no apparent respiratory distress, pale, but no jaundice, cyanosis or thyromegaly. No jugular venous distention. No limb edema. VITAL SIGNS: Her heart rate was 87, blood pressure was 131/65, temperature was 98.3, respiratory rate was 16, and oxygen saturation was 93%. HEAD, EYES, EARS, NOSE AND THROAT: Normocephalic, atraumatic. NECK: Supple. CARDIAC: Normal first and second heart sounds. No gallop or murmur. CHEST: Clear to auscultation. No crepitation or rhonchi. ABDOMEN: Distended, soft, nontender. No guarding or rigidity. No organomegaly. All hernial orifices intact. Bowel sounds normal. NEUROLOGIC: She is awake, alert, responding appropriately. All cranial nerves intact. She moves extremities without difficulty, although she is mostly bedbound. Her intake over the last 24 hours was 240, output was 600. LABORATORY DATA: Her most recent white cell count was 5000, hemoglobin 13, hematocrit 40, MCV 86 and platelet count of 66,000. Her chemistry showed a BUN of 10, creatinine 0.9. ASSESSMENT: 1. L1 compression fracture confirmed by an MRI for which we have consulted Dr. Garcia; however, he apparently has not seen her yet. 2. Other medical problems include: A. Type 2 diabetes mellitus seems to be reasonably controlled. B. Hypertension. C. Gastroesophageal reflux disease. D. Dysphagia due to esophageal stricture for which she underwent esophageal dilatation. PLAN: To continue with all her current medication. Await evaluation by the interventional radiologist. For DVT prophylaxis, I will start her on SCDs. BAILEY MCCORMICK MD DR: KEYANA/brisa JOB#: [id number] / [id number]
[2020-03-18 11:00] VITALS: BP 124/72
--- NOTE | 2020-03-18 13:40 | NUR ---
spoke with Tasha at [facility] ortho answering service. Provider cfo controller will be paged for routine consult.
[2020-03-18 15:00] VITALS: BP 128/68
--- NOTE | 2020-03-18 15:19 | PDOC2 ---
CONSULT Date of Consult Date of Consult DATE: 03/18/20 TIME: 15:16 Reason for Consult Reason for Consult: Bilateral knee pain Referring Physician Referring Physician: Prakash Identification/Chief Complaint Chief Complaint Bilateral lower extremity weakness, history of bilateral total knee arthroplasty, some knee symptoms Source Source: Chart review, Patient History of Present Illness Reason for Visit: The patient is a 74-year-old [place] patient [place] [facility], who presented to the [facility] Room of [facility] with mechanical ground level fall, landing on her bottom approximately an hour and half prior to arrival. The patient has a history of vertebral fracture with kyphoplasty in the past. She has pain in her lower thoracic and lumbar area. She denied any neurological deficit. No bladder or bowel incontinence. Denied any other complaint. She was investigated. In particular, there was no loss of consciousness. She did not hit her head. Denied any headache. She was evaluated in the Emergency Room and has had a CT scan of thoracic and lumbar spine, which showed that the patient has approximately 50% height loss of L1 vertebral body given the cortical offset anteriorly, suspicious for acute compression fracture with mild retropulsion of the posterior element that results in mild central canal stenosis. She has chronic fracture of T11 and L3 vertebral bodies posterior to augmentation change, has diffusely decreased bone mineral density and multilevel degenerative changes and therefore, the patient was transferred to [facility] to arrange for an MRI and to consult the interventional radiologist to see whether she qualifies for kyphoplasty. She has a history of bilateral total knee arthroplasty, she said 1 of those was 10 years ago and the other was 11 years ago. She reports one knee replacement was done at [facility]. She was unclear on the location for the other knee. She denies any specific knee sharp pain or swelling, more of a generalized lower extremity weakness and sciatic type pain which causes her legs and knees to feel like they want to give out. Past Medical History Past Medical History diabetes, hypertension, gastroesophageal reflux disease, diverticulosis, hypertension as well as recurrent dysphagia, for which she underwent previous dilatation. Heme/Onc: Cancer Endocrine: Diabetes Past Surgical History Past Surgical History: Cholecystectomy, Total knee replacement, Hysterectomy Family History Family History: Hypertension Social History ALCOHOL: none Drugs: None Lives: with Family Domestic Violence: Neg Current Medications Current Medications Current Medications Morphine Sulfate (Morphine Sulfate) 4 mg PRN Q4HRS PRN IV PAIN Last administered on 03/18/20at 08:50; Start 03/15/20 at 16:30 Ondansetron HCl (Zofran) 4 mg PRN Q4HRS PRN IVP NAUSEA/VOMITING; Start 03/15/20 at 16:30 Dextrose (Dextrose 50%-Water Syringe) 12.5 gm PRN Q15MIN PRN IV SEE COMMENTS; Start 03/15/20 at 16:30 Gadoterate Meglumine (Dotarem) 14 ml 1X ONCE IVP Last administered on 03/16/20at 14:29; Start 03/16/20 at 13:30; Stop 03/16/20 at 13:31; Status DC Anastrozole (Arimidex) 1 mg DAILY PO Last administered on 03/18/20at 08:53; Start 03/16/20 at 14:00 Levothyroxine Sodium (Synthroid) 88 mcg DAILY06 PO Last administered on 03/18/20at 04:45; Start 03/16/20 at 14:00 Atorvastatin Calcium (Lipitor) 80 mg QHS PO Last administered on 03/17/20at 22:15; Start 03/16/20 at 21:00 Glimepiride (Amaryl) 4 mg BID PO Last administered on 03/18/20at 08:47; Start 03/16/20 at 21:00 Metformin HCl (Glucophage) 1,000 mg BIDWMEALS PO Last administered on 03/18/20at 08:48; Start 03/16/20 at 17:00 Pantoprazole Sodium (Protonix) 40 mg DAILYAC PO Last administered on 03/18/20at 04:45; Start 03/16/20 at 14:00 Docusate Sodium (Colace) 100 mg BID PO Last administered on 03/18/20at 08:48; Start 03/17/20 at 10:30 Polyethylene Glycol (miraLAX PACKET) 17 gm DAILY PO Last administered on 03/18/20at 15:04; Start 03/17/20 at 10:30 Acetaminophen/ Hydrocodone Bitart (Lortab 5/325) 1 tab PRN Q4HRS PRN PO MODERATE PAIN; Start 03/18/20 at 09:45 Active Scripts Active Reported Arimidex (Anastrozole) 1 Mg Tablet 1 Tab PO DAILY 30 Days Lipitor (Atorvastatin Calcium) 80 Mg Tablet 80 Mg PO HS Metformin Hcl 1,000 Mg Tablet 1,000 Mg PO BID Omeprazole 40 Mg Capsule.dr 1 Cap PO DAILY Levothyroxine Sodium 75 Mcg Tablet 88 Mcg PO DAILY Glimepiride 4 Mg Tablet 4 Mg PO BID Allergies Allergies: Coded Allergies: adhesive tape (Verified Allergy, Intermediate, Itching, 03/14/20) BAND AIDS ROS General: No: Chills, Night Sweats Eyes: No Double vision HEENT: YES: Hearing change Respiratory: No: Cough, Shortness of breath Cardiovascular: No Chest Pain Genitourinary: No Hematuria Musculoskeletal: Yes Gait Disturbance, Yes Joint Pain Neurological: Yes Gait Disturbance, Yes Impaired Coord/balance; No Bowel/Bladder ControlChng Physical Exam General: Alert, Oriented X3 HEENT: Atraumatic Lungs: Normal air movement Heart: Regular rate Abdomen: Soft Extremities: Other (The RIGHT knee shows a well-healed midline scar from total knee arthroplasty and no other lesions or rashes. There is normal alignment, no masses and no effusion. No tenderness to palpation. Range of motion is 0-120 degrees, with typical total knee crepitus but no pain at the extremes of motion. The knee is stable to varus and valgus stress without subluxation or laxity. Muscle strength is diffusely weak 4/5 for quadriceps and hamstrings, and muscle tone is slightly decreased. The extensor mechanism is intact. Light touch sensation is intact. No edema and no varicosities. Dorsalis pedis pulse is intact and capillary refill is normal the LEFT knee shows a well-healed midline total knee scar, without drainage or ulcers. There is normal alignment, no masses and no effusion. No tenderness to palpation. Range of motion is 0-120 degrees, with typical total knee crepitus but no pain at the extremes of motion. The knee is stable to varus and valgus stress without subluxation or laxity. Muscle strength is diffusely weak (4/5) for quadriceps and hamstrings, and muscle tone is slightly decreased. The extensor mechanism is intact. Light touch sensation is intact. No edema and no varicosities. Dorsalis pedis pulse is intact and capillary refill is normal) Skin: No breakdown, No significant lesion Neuro: Normal speech Vitals VITALS Vital Signs Date Time Temp Pulse Resp B/P (MAP) Pulse Ox O2 Delivery O2 Flow Rate FiO2 03/18/20 11:00 98.3 89 16 124/72 (89) 94 Room Air 98.3 03/18/20 07:45 2.0 Labs Labs Laboratory Tests Test 03/16/20 17:30 03/16/20 20:12 03/16/20 20:26 03/17/20 07:45 Prothrombin Time 14.7 SEC (11.7-14.0) Prothromb Time International Ratio 1.2 (0.8-1.1) Activated Partial Thromboplast Time 30 SEC (24-38) Glucose (Fingerstick) 241 mg/dL (70-99) 244 mg/dL (70-99) White Blood Count 5.1 x10^3/uL (4.0-11.0) Red Blood Count 4.66 x10^6/uL (3.50-5.40) Hemoglobin 13.3 g/dL (12.0-15.5) Hematocrit 40.0 % (36.0-47.0) Mean Corpuscular Volume 86 fL (79-100) Mean Corpuscular Hemoglobin 29 pg (25-35) Mean Corpuscular Hemoglobin Concent 33 g/dL (31-37) Red Cell Distribution Width 15.2 % (11.5-14.5) Platelet Count 66 x10^3/uL (140-400) Sodium Level 137 mmol/L (136-145) Potassium Level 4.6 mmol/L (3.5-5.1) Chloride Level 100 mmol/L (98-107) Carbon Dioxide Level 29 mmol/L (21-32) Anion Gap 8 (6-14) Blood Urea Nitrogen 10 mg/dL (7-20) Creatinine 0.9 mg/dL (0.6-1.0) Estimated GFR (Cockcroft-Gault) 60.9 BUN/Creatinine Ratio 11 (6-20) Glucose Level 228 mg/dL (70-99) Calcium Level 9.1 mg/dL (8.5-10.1) Total Bilirubin 1.5 mg/dL (0.2-1.0) Aspartate Amino Transf (AST/SGOT) 22 U/L (15-37) Alanine Aminotransferase (ALT/SGPT) 22 U/L (14-59) Alkaline Phosphatase 22 U/L (46-116) Total Protein 7.1 g/dL (6.4-8.2) Albumin 3.1 g/dL (3.4-5.0) Albumin/Globulin Ratio 0.8 (1.0-1.7) Test 03/17/20 08:23 03/17/20 12:09 03/17/20 17:23 03/17/20 20:46 Glucose (Fingerstick) 241 mg/dL (70-99) 305 mg/dL (70-99) 207 mg/dL (70-99) 242 mg/dL (70-99) Test 03/18/20 07:27 03/18/20 11:07 Glucose (Fingerstick) 230 mg/dL (70-99) 291 mg/dL (70-99) Laboratory Tests Test 03/17/20 17:23 03/17/20 20:46 03/18/20 07:27 03/18/20 11:07 Glucose (Fingerstick) 207 mg/dL (70-99) 242 mg/dL (70-99) 230 mg/dL (70-99) 291 mg/dL (70-99) Images Images Reports reviewed, images independently reviewed, hip and right knee x-rays from 10/11/2019 at [place]. Right total knee arthroplasty in good position. Minimal degenerative changes of the hip. MRI lumbar spine also reviewed. The acute L1 fracture and chronic L3 compr ession fracture is seen on series 5 image 5. I do not see any recent left knee x-rays and I will obtain some. Based on my examination, the problems in her lower extremities are related to the lumbar spine, and I believe her total knee arthroplasties are both well fixed without complications or loosening. [place] [id number] IMAGING REPORT Signed PATIENT: PRITESH LEMON ACCOUNT: [id number] : 1945 LOCATION: [facility] AGE: 73 SEX: F EXAM STATUS: REG CLI ORD. PHYSICIAN: XIOMARA PLATT REASON: RIGHT KNEE PAIN PROCEDURE: KNEE RIGHT 2V AP VIEW OF THE PELVIS AND TWO-VIEW STUDY OF THE RIGHT HIP Clinical indications: Right hip pain FINDINGS: No acute fracture or dislocation or lytic process is seen. No significant arthritic change of the right hip joint is seen. AP view of the pelvis demonstrates a normal-appearing left hip. There is mild degenerative osteoarthritis of the symphysis pubis and both SI joints. IMPRESSION: No significant osseous abnormality of the right hip. 2 VIEW STUDY OF THE RIGHT KNEE Clinical indications: Right knee pain FINDINGS: Total right knee arthroplasty is evident which is well aligned. No acute fracture or lytic process is seen. No significant right knee joint effusion is seen. There is a soft tissue calcification within the prepatellar tendon soft tissues measuring 3 mm in size with associated soft tissue swelling. IMPRESSION: No acute osseous abnormality. See discussion above. Electronically signed by: Robert Camacho MD (10/11/2019 11:18 AM) [facility] [place] DICTATED AND SIGNED BY: ROBERT CAMACHO MD DATE: 10/11/19 1988 CC: XIOMARA PLATT [facility] [address] [place] [address] IMAGING REPORT Signed PATIENT: PRITESH LEMON ACCOUNT: [id number] : 1945 LOCATION: [address] [place] [address] AGE: 74 SEX: F EXAM STATUS: ADM IN ORD. PHYSICIAN: BAILEY MCCORMICK MD REASON: Comp fx 14mL DOTAREM PROCEDURE: LUMBAR SPINE WO/W CONTRAST LUMBAR SPINE WO/W CONTRAST History: Reason: Comp fx 14mL DOTAREM / Spl. Instructions: / History: Technique: Multiplanar, multi sequential MR imaging was performed of the lumbar spine without and with intravenous contrast. Comparison: July 30, 2019 Findings: Transitional lumbosacral anatomy with lumbarization of S1. Vertebral body numbering in keeping with prior reporting. L5-S1 is identified on axial T2 series 7 image 19. Acute L1 superior endplate compression fracture with mild less than 25 percent height loss. No retropulsion. Severe chronic L3 compression fracture with interval vertebroplasty. Increased height loss centrally compared to 2019. Increased retropulsion contributing to moderate to severe canal narrowing. Chronic T11 compression fracture with vertebroplasty material. Conus terminates at the normal location. No evidence of nerve root clumping. No pathologic enhancement. L1-L2: No canal or neuroforaminal narrowing. L2-L3: Disc bulge. Retropulsion from severe compression fracture. Moderate to severe canal narrowing. Moderate right and mild left neuroforaminal narrowing. Mild facet arthropathy. L3-L4: Disc bulge. Moderate facet arthropathy. Mild canal narrowing due to retropulsion from compression fracture. Moderate right and mild left neuroforaminal narrowing. L4-L5: Broad-based disc bulge. Advanced right and moderate left facet arthropathy. Right greater left subarticular recess narrowing. Mild canal narrowing. No neuroforaminal narrowing. L5-S1: Disc bulge. Advanced facet arthropathy. No canal narrowing. No neuroforaminal narrowing. Impression: 1. Acute L1 mild compression fracture. 2. Chronic L3 compression fracture with increased central height loss and retropulsion compared to 2019 MRI contributing to moderate to severe canal narrowing. 3. Multilevel lumbar spondylosis. Electronically signed by: Herbie Vences DO (03/16/2020 3:42 PM) [id number] Assessment/Plan Assessment/Plan Bilateral lower extremity weakness, difficulty walking. Compression fractures of the lumbar spine. Spinal stenosis. Bilateral total knee arthroplasty. I will check a left knee x-ray. I would recommend assessment for kyphoplasty. I do not see any problems at the knees on exam or radiographically. GABBY BURDEN MD Mar 18, 2020 15:19
--- NOTE | 2020-03-18 18:02 | RAD ---
Examination: KNEE LEFT 2V History: Reason: knee pain 436 / Spl. Instructions: / History: Comparison/Correlation: None Findings: Two-view left knee x-ray examination is performed. Left knee joint arthroplasty is present. Small effusion present. No fracture or bone destruction. Prosthesis appears intact with no findings to suggest loosening. Impression: Small left knee joint effusion. Otherwise unremarkable. Electronically signed by: Zac Waldron MD (03/18/2020 6:00 PM) [id number]
[2020-03-18 19:00] VITALS: BP 123/65
[2020-03-18] MEDS: ATORVASTATIN CALCIUM 40 MG TABLET. PO SCH (20:54)
[2020-03-18] MEDS: HYDROcodone/APAP 5/325MG 1 TAB TABLET PO PRN (20:55)
[2020-03-18 23:00] VITALS: BP 128/70
[2020-03-19] VITALS (11 sets, daily range): BP systolic 112–186; BP diastolic 50–87
[2020-03-19] MEDS: HYDROcodone/APAP 5/325MG 1 TAB TABLET PO PRN ×2 (04:21→19:07)
[2020-03-19 05:34] LABS: HEMATOCRIT 39.1 % (36.0-47.0); HEMOGLOBIN 13.1 g/dL (12.0-15.5); RED BLOOD COUNT 4.6 x10^6/uL (3.50-5.40); RED CELL DISTRIBUTION WIDTH 14.5 % (11.5-14.5); WHITE BLOOD COUNT 4.7 x10^3/uL (4.0-11.0)
[2020-03-19 05:37] LABS: PROTHROMBIN TIME PATIENT 14.9 SEC (11.7-14.0)
[2020-03-19 06:00] LABS: ALBUMIN 2.9 g/dL (3.4-5.0); ALBUMIN/GLOBULIN RATIO 0.8 (1.0-1.7); CALCIUM 8.8 mg/dL (8.5-10.1); GFR 53.9; POTASSIUM 4.8 mmol/L (3.5-5.1); TOTAL BILIRUBIN 1.3 mg/dL (0.2-1.0); TOTAL PROTEIN 6.5 g/dL (6.4-8.2)
[2020-03-19] MEDS: LEVOTHYROXINE 88 MCG TABLET PO SCH (06:28)
[2020-03-19] MEDS: PANTOPRAZOLE 40 MG TABLET.DR. PO SCH (07:30)
[2020-03-19] MEDS: metFORMIN 500 MG TABLET PO SCH (08:00)
[2020-03-19] MEDS: POLYETHYLENE GLYCOL 3350 17 GM PACKET. PO SCH (08:30)
[2020-03-19] MEDS: DOCUSATE SODIUM 100 MG CAPSULE. PO SCH ×2 (08:30→20:20)
[2020-03-19] MEDS: ANASTROZOLE 1 MG TABLET PO SCH (08:30)
[2020-03-19] MEDS: GLIMEPIRIDE 2 MG TABLET. PO SCH ×2 (08:30→20:20)
--- NOTE | 2020-03-19 09:07 | NUR ---
SW following. Spoke with RN and reviewed chart. Pt went for kyphoplasty per RN. SW requested PT/OT orders. SW to continue following.
--- NOTE | 2020-03-19 09:57 | PN ---
DATE: 03/19/2020 SUBJECTIVE: The patient is resting, slightly propped up in bed, in no apparent distress, awake, alert. On questioning her, she continued to complain of back pain. She was in fact seen by Dr. Sheikh, who did not feel that her complaint is related to her knees, and that she has had weakness and difficulty walking related to her lumbar spine stenosis. She is actually scheduled for kyphoplasty sometime this afternoon. PHYSICAL EXAMINATION: GENERAL: When I examined her, she was pale, but not jaundiced, cyanosed, or thyromegaly. No jugular venous distention. No limb edema. VITAL SIGNS: Her heart rate was 86, blood pressure was 125/65, temperature 98, respiratory rate was 18, and her oxygen saturation was 91% on room air. HEAD, EYES, EARS, NOSE AND THROAT: Normocephalic, atraumatic. NECK: Supple. HEART: Normal first and second heart sounds. No gallop, rub, or murmur. CHEST: Clear to auscultation. No crepitation or rhonchi. ABDOMEN: Distended, soft, nontender. NEUROLOGIC: She is awake, alert, responding appropriately. All cranial nerves are intact. She moves extremities without difficulty. Her intake was incompletely recorded, output was 1000. LABORATORY DATA: As of this morning, her white cell count was 4700, hemoglobin 13, hematocrit 39, MCV 85, and platelet count of 69,000. Her chemistry showed a serum sodium 138, potassium 4.8, chloride 101, bicarbonate 27, anion gap of 10, BUN 12, creatinine 1, estimated GFR was 54 mL per minute. Her glucose 179, calcium was 8.8. Total bilirubin slightly elevated at 1.3; however, AST, ALT, alkaline phosphatase were normal. Total protein 6.5, albumin 2.9. Her prothrombin time was 14.9, INR 1.1, aPTT was 35. ASSESSMENT: 1. L1 compression fracture confirmed by an MRI. She was seen by Dr. Marc and she is scheduled for kyphoplasty sometime this afternoon. 2. Other medical problems include: A. Type 2 diabetes mellitus, seems to be reasonably controlled. B. Hypertension. C. Gastroesophageal reflux disease. D. Dysphagia due to esophageal stricture, for which she underwent esophageal dilatation. E. Osteoporosis and osteoarthritis. PLAN: Obviously continue with DVT prophylaxis. Continue with management. Continue with all other medication. We will obviously start the process of physical and occupational therapy after she has had her kyphoplasty. BAILEY MCCORMICK MD DR: KEYANA/brisa JOB#: [id number] / [id number]
[2020-03-19] MEDS ORDERED: MIDAZOLAM HCL/PF 2 MG/2 ML VIAL. ONE (10:28)
[2020-03-19] MEDS ORDERED: LIDOCAINE WITH 8.4% SOD BICARB 3 ML DISP.SYRIN. ONE (10:28)
[2020-03-19] MEDS ORDERED: fentaNYL PF VIAL 100 MCG/2 ML VIAL ONE (10:28)
[2020-03-19] MEDS ORDERED: IOHEXOL 240 MG/ML 50ML VIAL. ONE (10:28)
[2020-03-19] MEDS ORDERED: MIDAZOLAM HCL/PF 2 MG/2 ML VIAL. IV ONE (10:45)
[2020-03-19] MEDS ORDERED: LIDOCAINE WITH 8.4% SOD BICARB 3 ML DISP.SYRIN. IJ ONE (10:45)
[2020-03-19] MEDS ORDERED: IOHEXOL 240 MG/ML 50ML VIAL. IJ ONE (10:45)
[2020-03-19] MEDS ORDERED: CONTRAST GIVEN. MC PRN (10:45)
[2020-03-19] MEDS ORDERED: ceFAZolin SODIUM IV Push 1 GM VIAL. IVP ONE (11:00)
[2020-03-19] MEDS: fentaNYL PF VIAL 100 MCG/2 ML VIAL IV ONE (11:00)
--- NOTE | 2020-03-19 14:03 | RAD ---
Fluoroscopically guided kyphoplasty, L1 03/19/2020 Indication: Pathologic L1 compression fracture secondary to bone demineralization with severe pain, limiting activities of daily living, severe pain persists despite conservative treatment measures. MRI evaluation demonstrates fracture acuity. Fluoro time: 7.3 MINUTES Dose area product: 48 Gycm2 Moderate sedation: The patient was appropriately monitored by a qualified independent observer throughout the course of the moderate sedation. [id number] sedation time:30 minutes Consent: The risks and benefits of the procedure were discussed with the patient. Informed consent was obtained. The patient was brought to the fluoroscopy suite and placed in the prone position. A timeout procedure was performed. Preprocedural antibiotics were administered. Procedure: The overlying skin was prepped and draped in the usual sterile fashion. All elements of maximal sterile barrier technique including the use of a cap, mask, sterile gown, sterile gloves, large sterile sheet, appropriate hand hygiene, and 2% chlorhexidine for cutaneous antisepsis (or acceptable alternative antiseptic per current guidelines) were followed for this procedure. Using a left transpedicular approach, and direct fluoroscopic guidance, a trocar needle was advanced to the posterior third of the targeted L1 vertebral body. Vertebral augmentation balloon was then coaxially introduced through the needle, into the more central vertebral body and was deployed. A curved cement delivery needle was advanced into the contralateral vertebral body. Contrast opacified polymethylmethacrylate was then very slowly and carefully introduced through the vertebral augmentation needle, using strict fluoroscopic control. Once adequate filling had been achieved the needles were removed and manual pressure was held. No significant extravasation or complication was identified. Sterile dressing was applied. Patient tolerated the procedure well, without apparent complication. Impression: Fluoroscopically guided kyphoplasty, L1
[2020-03-19] MEDS: ATORVASTATIN CALCIUM 40 MG TABLET. PO SCH (20:21)
[2020-03-20 03:00] VITALS: BP 109/69
[2020-03-20] MEDS: LEVOTHYROXINE 88 MCG TABLET PO SCH (05:40)
[2020-03-20 07:21] VITALS: BP 103/58
[2020-03-20] MEDS: DOCUSATE SODIUM 100 MG CAPSULE. PO SCH ×2 (08:36→21:54)
[2020-03-20] MEDS: POLYETHYLENE GLYCOL 3350 17 GM PACKET. PO SCH (08:36)
[2020-03-20] MEDS: GLIMEPIRIDE 2 MG TABLET. PO SCH ×2 (08:36→21:54)
[2020-03-20] MEDS: ANASTROZOLE 1 MG TABLET PO SCH (08:37)
[2020-03-20] MEDS: PANTOPRAZOLE 40 MG TABLET.DR. PO SCH (08:37)
--- NOTE | 2020-03-20 09:04 | PN ---
DATE: 03/20/2020 SUBJECTIVE: The patient is resting slightly propped up in bed, in no apparent distress, awake, alert, denied any complaint. She has had her L1 kyphoplasty done successfully yesterday; however, she has not been seen yet by the Physical Therapy. PHYSICAL EXAMINATION: GENERAL: When I examined her, she looked pale. No jaundice, cyanosis or thyromegaly. No jugular venous distention. No lower limb edema. VITAL SIGNS: Her heart rate was 85, blood pressure was 103/58, temperature was 98.3, respiratory rate was 18 and oxygen saturation was 94%. HEAD, EYES, EARS, NOSE AND THROAT: Showed normocephalic, atraumatic. NECK: Supple. HEART: Showed normal first and second heart sounds. No gallop or murmur. CHEST: Clear to auscultation. No crepitation or rhonchi. ABDOMEN: Distended, soft, nontender. NEUROLOGIC: She is grossly intact. Her intake over the last 24 hours was incompletely recorded, output was 1500. LABORATORY DATA: Her lab work as of yesterday showed a white cell count 4700, hemoglobin 13, hematocrit 39, MCV 85 and platelet count of 69,000. Her chemistry showed a serum sodium of 138, potassium 4.8, chloride 101, bicarbonate 27, anion gap of 10, BUN 12, creatinine 1, estimated GFR was 54 mL per minute. Her glucose 179. Calcium was 8.8. Total bilirubin, AST, ALT and alkaline phosphatase were normal. Total protein was 6.5. Albumin was 2.9. ASSESSMENT: 1. L1 compression fracture confirmed by an MRI. She was seen by Dr. Garcia and underwent L1 kyphoplasty successfully yesterday. 2. Other medical problems include: A. Type 2 diabetes mellitus, seems to be reasonably controlled. B. Hypertension. C. Gastroesophageal reflux disease. D. Dysphagia due to esophageal stricture for which she underwent esophageal dilatation. E. Osteoporosis and osteoarthritis. PLAN: To consult Physical and Occupational Therapy and to decide whether to discharge her home with home health and/or to a jail facility. BAILEY MCCORMICK MD DR: KEYANA/brisa JOB#: [id number] / [id number]
--- NOTE | 2020-03-20 10:48 | NUR ---
SW following. Discussed with RN and Dr. Randall, pt had kyphoplasty yesterday, PT/OT ordered. Probable discharge after therapy session depending on recommendations. SW will continue to follow.
[2020-03-20 11:14] VITALS: BP 128/65
[2020-03-20 15:13] VITALS: BP 125/65
[2020-03-20] MEDS: HYDROcodone/APAP 5/325MG 1 TAB TABLET PO PRN (16:25)
[2020-03-20 19:00] VITALS: BP 120/67
[2020-03-20] MEDS: ATORVASTATIN CALCIUM 40 MG TABLET. PO SCH (21:54)
[2020-03-20 23:00] VITALS: BP 103/63
[2020-03-21] MEDS: HYDROcodone/APAP 5/325MG 1 TAB TABLET PO PRN (00:51)
[2020-03-21 03:00] VITALS: BP 124/69
[2020-03-21] MEDS: LEVOTHYROXINE 88 MCG TABLET PO SCH (06:07)
[2020-03-21 07:31] VITALS: BP 112/70
[2020-03-21] MEDS: GLIMEPIRIDE 2 MG TABLET. PO SCH (09:04)
[2020-03-21] MEDS: PANTOPRAZOLE 40 MG TABLET.DR. PO SCH (09:04)
[2020-03-21] MEDS: DOCUSATE SODIUM 100 MG CAPSULE. PO SCH (09:04)
[2020-03-21] MEDS: POLYETHYLENE GLYCOL 3350 17 GM PACKET. PO SCH (09:04)
[2020-03-21] MEDS: ANASTROZOLE 1 MG TABLET PO SCH (09:05)
[2020-03-21] MEDS ORDERED: INSU100I13 SQ (09:07)
[2020-03-21] MEDS ORDERED: HYDR-2761 PO (10:21)
[2020-03-21] MEDS ORDERED: DOCU-109 PO (10:21)
[2020-03-21] MEDS ORDERED: POLY17PO29 PO (10:21)
--- NOTE | 2020-03-21 10:26 | SNU/HH DC ---
DISCHARGE WITH HOME HEALTH DISCHARGE INFORMATION: Discharge Date: Mar 21, 2020 Final Diagnosis: L1 compression fracture s/p kyphoplasty Condition on Discharge: Stable CODE STATUS: Code Status: Full HOME HEALTH: Face to Face: I certify this patient is under my care and that I, or a nurse practitioner or physician's chemical laboratory assistant working with me, had a face to face encounter that meets the physician face to face encounter requirements with this patient on 03/21/20 Medical Complications: FX Mcfp For: Admin/Educate Injections RN For Eval/Treatment: Yes Physical Therapy For: Evalulation/Treatment Occupational Therapy For: Evaluation/Treatment Pt Meets Homebound Status: Unsteady balance w/ amb, POST DISCHARGE ORDERS: Activity Instructions for Disc: Activity as tolerated Bathing Instructions: Shower-keep dressing dry DIET AFTER DISCHARGE: ADA Wound/Incision Care: Ice to area for comfort, Do not change dressing, Reinforce dressing PRN CHECKS AFTER DISCHARGE: Checks after discharge: Check blood sugar, ac/hs Comment: back CERTIFICATION STATEMENT: Certification Statement: Certification Statement: Based on the above finding, I certify that this patient is confined to the home and needs intermittent care home care, physical therapy and/or speech therapy, or continues to need occupational therapy.~ This patient is under my care, and I have initiated the establishment of the plan of care.~ This patient will be followed by myself or a community physician who will periodically review the plan of care. Home Meds Active Scripts Polyethylene Glycol 3350 (MIRALAX) 17 Gm Powd.pack, 1 PACKET PO DAILY for constipation for 2 Days, #2 PACKET 0 Refills dissolve in water Prov:BAILEY MCCORMICK MD 03/21/20 Docusate Sodium (COLACE) 100 Mg Capsule, 1 CAP PO BID for constipation for 30 Days, #60 CAP 0 Refills Prov:BAILEY MCCORMICK MD 03/21/20 Hydrocodone Bit/Acetaminophen (HYDROCODONE-APAP 5-325 ) 1 Tab Tablet, 1 TAB PO PRN Q6HRS PRN for PAIN for 10 Days, #60 TAB 0 Refills Prov:BAILEY MCCORMICK MD 03/21/20 Reported Medications Insulin Glargine,Hum.rec.anlog (LANTUS SOLOSTAR) 100 Unit/1 Ml Insuln.pen, 42 UNIT SQ QHS for dm, #15 ML 3 Refills 03/21/20 Anastrozole (ARIMIDEX) 1 Mg Tablet, 1 TAB PO DAILY for brca for 30 Days, #30 TAB 0 Refills 03/15/20 Atorvastatin Calcium (LIPITOR) 80 Mg Tablet, 80 MG PO HS for FOR CHOLESTEROL, #30 TAB 0 Refills 03/15/20 Metformin Hcl (METFORMIN HCL) 1,000 Mg Tablet, 1000 MG PO BID for ANTI-DIABETIC, TAB 0 Refills 08/12/18 Omeprazole (OMEPRAZOLE) 40 Mg Capsule.dr, 1 CAP PO DAILY, #30 CAP 3 Refills 02/11/18 Levothyroxine Sodium (LEVOTHYROXINE SODIUM) 75 Mcg Tablet, 88 MCG PO DAILY for thyroid 12/22/13 Glimepiride (GLIMEPIRIDE) 4 Mg Tablet, 4 MG PO BID 12/22/13 BAILEY MCCORMICK MD Mar 21, 2020 10:26
--- NOTE | 2020-03-21 10:52 | NUR ---
SW following. Discussed with RN, discharge orders for home with home health. LEEANN faxed to [facility]. RN notified.
--- NOTE | 2020-03-21 10:52 | DS ---
DATE OF DISCHARGE: 03/21/2020 HOSPITAL COURSE: The patient is resting, slightly propped up in bed, in no apparent distress, awake, alert. On questioning her, she denied any complaints. In particular, her back pain has largely subsided. She was seen by the physical therapist and was able to walk with a walker and they recommended that she can be discharged home with home health. PHYSICAL EXAMINATION: GENERAL: When I saw her this morning, she looked pale. No jaundice, cyanosis or thyromegaly. No jugular venous distention. No limb edema. VITAL SIGNS: Her heart rate was 76, blood pressure was 112/70, temperature 98.6, respiratory rate was 18 and oxygen saturation was 97% on 2 L of oxygen. HEAD, EYES, EARS, NOSE AND THROAT: Normocephalic, atraumatic. NECK: Supple. HEART: Showed normal first and second heart sounds. No gallop, rub or murmur. CHEST: Clear to auscultation. No crepitation or rhonchi. ABDOMEN: Distended, soft. NEUROLOGICAL: She is somewhat hard of hearing, but otherwise, all her cranial nerves are intact. She moves extremities without difficulty. She ambulates with a walker. Her intake was incompletely recorded, output was 1275. LABORATORY DATA: Her most recent white cell count was 4700, hemoglobin 13, hematocrit 39, MCV 85 and platelet count of 69,000. Her chemistry showed a serum sodium 138, potassium 4.8, chloride 101, bicarbonate 27, anion gap of 10, BUN 12, creatinine 1, estimated GFR was 54 mL per minute, her glucose 179, calcium was 8.8. Total bilirubin, AST, ALT, alkaline phosphatase were normal. Total protein 6.5. Albumin 2.9. DISCHARGE MEDICATIONS: She was discharged home to continue Colace 100 mg twice a day, hydrocodone/APAP 5/325 one tablet every 6 hours as needed, polyethylene glycol 17 g daily, Arimidex 1 mg daily, atorvastatin (Lipitor) 80 mg at bedtime, glimepiride 4 mg twice a day, Lantus insulin 42 units subcutaneous at bedtime, levothyroxine sodium 75 mcg once a day, metformin 1000 mg twice a day, omeprazole 40 mg daily. FINAL DISCHARGE DIAGNOSES: 1. L1 compression fracture, status post kyphoplasty. 2. Other medical problems include: A. Type 2 diabetes mellitus, seems to be reasonably controlled. B. Hypertension. C. Gastroesophageal reflux disease. D. Dysphagia due to esophageal stricture for which she underwent esophageal dilatation. E. Osteoporosis and osteoarthritis. DISPOSITION: The patient will be discharged home with home health. BAILEY MCCORMICK MD DR: KEYANA/rbisa JOB#: [id number] / [id number]
[2020-03-21] MEDS ORDERED: INSULIN LISPRO 300 UNITS/3 ML VIAL. SQ ONE (11:30)
[2020-03-21 11:40] VITALS: BP 101/68
--- NOTE | 2020-03-21 13:10 | NUR ---
Pt. discharged to home with Rx, verbalized understanding of discharge instructions. Abd binder given to patient.
[2020-03-21] MEDS ORDERED: metFORMIN 500 MG TABLET PO SCH (17:00)
== END 2020-03-21 12:55 | disposition home health service (06) | DRG 517 ==
LOC: 4 NORTH 15:19
PROVIDERS: ADMIT Internal Medicine; ATTEND Internal Medicine
PROC: 0QS03ZZ Reposition Lumbar Vertebra, Percutaneous Approach (ICD-10-PCS; principal; 2020-03-19)
PROC: 0QU03JZ Supplement Lumbar Vertebra with Synthetic Substitute, Percutaneous Approach (ICD-10-PCS; 2020-03-19)
DX: S32.019A Unspecified fracture of first lumbar vertebra, initial encounter for closed fracture (principal); E11.9 Type 2 diabetes mellitus without complications; I10 Essential (primary) hypertension; K21.9 Gastro-esophageal reflux disease without esophagitis; K22.2 Esophageal obstruction; K59.00 Constipation, unspecified; K57.90 Diverticulosis of intestine, part unspecified, without perforation or abscess without bleeding; M19.90 Unspecified osteoarthritis, unspecified site; M47.816 Spondylosis without myelopathy or radiculopathy, lumbar region; M48.00 Spinal stenosis, site unspecified; M81.0 Age-related osteoporosis without current pathological fracture; W18.30XA Fall on same level, unspecified, initial encounter; E78.5 Hyperlipidemia, unspecified; Z82.49 Family history of ischemic heart disease and other diseases of the circulatory system; Z87.81 Personal history of (healed) traumatic fracture; Z90.710 Acquired absence of both cervix and uterus; Z96.653 Presence of artificial knee joint, bilateral; Z20.828 Contact with and (suspected) exposure to other viral communicable diseases; Z90.49 Acquired absence of other specified parts of digestive tract; W18.39XA Other fall on same level, initial encounter; Y93.89 Activity, other specified; Y92.89 Other specified places as the place of occurrence of the external cause; Y99.8 Other external cause status
CPT/HCPCS: 22514; 36415; 72158; 73560; 80053; 82962; 85027; 85610; 85730; 99152; 99153; 99285; A9575; C1713; J0690; J1815; J2250; J2270; J3010; J3490; Q9966; 97535-GO; G0378